=== PATIENT | female | born 1980 | race Caucasian/White ===

== ENCOUNTER 2020-10-06 08:11 | Emergency (ER) | payer MEDICAID ==
--- OUTSIDE RECORDS SUMMARY | 2020-10-06 08:14 | EXTERNAL MEDICAL SUMMARY RPT | Continuity of Care Document ---
:1980 Demographics Phone Unavailable Preferred Language Serbian Marital Status Unknown Taoism Affiliation Unknown Race Unknown Ethnic Group Unknown Author Organization [place] Address [address] [phone] Phone Care Team Providers Name Role Phone Justina Smith Unavailable Unavailable Procedures date description facility [id number] [facility] Vital Signs date measurement value source 20201004 BP_diastolic 77 mm[Hg] 20201004 BP_systolic 144 mm[Hg] 20201004 heart_rate 83 /min 20201004 respiration_rate 16 /min 20201004 temperature_metric 36.33 C 20201004 temperature_standard 97.4 F 20201004 weight_metric 99.79 kg 20201004 weight_standard 220 lb Social History date description facility [id number]
--- OUTSIDE RECORDS SUMMARY | 2020-10-06 08:18 | EXTERNAL MEDICAL SUMMARY RPT | Continuity of Care Document ---
:1980 Demographics Phone Unavailable Preferred Language Albanian Marital Status Unknown Christianity Affiliation Unknown Race Unknown Ethnic Group Unknown Author Organization [place] Address [address] [phone] Phone Care Team Providers Name Role Phone Shan Unavailable Unavailable Procedures date description facility [id number] [facility] Vital Signs date measurement value source 20201004 BP_diastolic 77 mm[Hg] 20201004 BP_systolic 144 mm[Hg] 20201004 heart_rate 83 /min 20201004 respiration_rate 16 /min 20201004 temperature_metric 36.33 C 20201004 temperature_standard 97.4 F 20201004 weight_metric 99.79 kg 20201004 weight_standard 220 lb Social History date description facility [id number]
--- NOTE | 2020-10-06 08:30 | ED Physician Documentation ---
PD HPI ABD PAIN - Stated complaint Stated Complaint: RT FLANK PX - History obtained from History obtained from: Patient - History of Present Illness Timing - onset: How many days ago (3-4) Timing - duration: Days (3-4) Timing - details: Abrupt onset, Still present, Waxing and waning (but more consistent overnight and states "the worst pain I have had".) Quality: Sharp, Stabbing, Pain Location: RUQ Radiation: Lower back (on right side), Right flank Improved by: No: Eating, Laying still Worsened by: Moving, Palpation. No: Eating, Breathing Associated symptoms: Nausea. No: Fever, Vomiting, Diarrhea, Hematuria Similar symptoms before: Has not had sx before Recently seen: Emergency Dept (seen 2 days ago at [facility] and reports was Dx with musculoskeletal pain and Rx NSAIDs. Say no tests/imaging.) Review of Systems Constitutional: denies: Fever, Chills Nose: denies: Rhinorrhea / runny nose, Congestion Throat: denies: Sore throat Respiratory: denies: Cough GI: reports: Abdominal Pain (ruq area around to right flank and back, with some pain down back to the iliac crest area, just on right.), Nausea. denies: Vomiting, Diarrhea Skin: denies: Rash, Lesions Neurologic: denies: Focal weakness, Numbness PD PAST MEDICAL HISTORY - Past Medical History Cardiovascular: None GI: None REGULATORY SCIENTIST: None Derm: None - Present Medications Home Medications: Ambulatory Orders Medication Instructions Recorded Confirmed Acyclovir 800 mg PO QID #20 tablet 10/06/20 Gabapentin [Neurontin] 600 mg PO TID 10/06/20 10/06/20 HYDROcod/ACETAM 5/325 [[place]ar[place] 5/325] 1 ea PO Q6H PRN #15 tablet 10/06/20 Ketorolac Inj (30Mg) [Toradol Inj 30 mg IVP Q6H 10/06/20 10/06/20 (30Mg)] Nortriptyline HCl [Pamelor] 50 mg PO DAILY PM 10/06/20 10/06/20 Rizatriptan Benzoate [[employer]] 10 mg PO PRN PRN 10/06/20 10/06/20 dexAMETHasone [Decadron] 4 mg PO DAILY #5 tablet 10/06/20 methocarbamoL [Robaxin] 500 mg PO TID PRN #20 tablet 10/06/20 - Allergies Allergies/Adverse Reactions: Allergies Allergy/AdvReac Type Severity Reaction Status Date / Time Sulfa (Sulfonamide Allergy Rash Verified 10/06/20 08:30 Antibiotics) PD ED PE NORMAL - Vitals Vital signs reviewed: Yes - General General: Alert and oriented X 3, Well developed/nourished, Other (appears in pain) - HEENT HEENT: Pharynx benign - Neck Neck: Supple, no meningeal sign, No adenopathy - Cardiac Cardiac: RRR (mild tachycardia), No murmur - Respiratory Respiratory: Clear bilaterally - Abdomen Abdomen: Normal bowel sounds, Soft, Non distended, No organomegaly, Other (tender RUQ with local guarding. ALso right CVA tender. No noted rash nor sores. Some tender with softer soft tissue palpation. Not tender to light touch. There is tender of the lower costal margin as well. ) - Female Female : Deferred - Rectal Rectal: Deferred - Back Back: No spinal TTP, Other (tender right CVA area in particular. Some tender right lateral muscles down back to the iliac crest area. ) - Derm Derm: Normal color, Warm and dry, No rash - Extremities Extremities: No edema, No calf tenderness / cord - Neuro Neuro: Alert and oriented X 3, No motor deficit, Normal speech Results - Vitals Vitals: Vital Signs - 24 hr 10/06/20 10/06/20 10/06/20 08:27 08:49 10:36 Temperature 36.2 C L 36.8 C Heart Rate 103 H 91 79 Respiratory 20 20 16 Rate Blood Pressure 133/93 H 123/91 H 122/80 O2 Saturation 97 93 97 10/06/20 12:10 Temperature 36.6 C Heart Rate 80 Respiratory 16 Rate Blood Pressure 128/90 H O2 Saturation 98 Oxygen O2 Source Room air - Labs Labs: Laboratory Tests 10/06/20 10/06/20 10/06/20 09:00 09:00 10:34 WBC 7.3 RBC 4.44 Hgb 13.4 Hct 41.0 MCV 92.3 MCH 30.2 MCHC 32.7 RDW 12.6 Plt Count 365 MPV 8.5 Neut # (Auto) 5.0 Lymph # (Auto) 1.6 [place] # (Auto) 0.5 Eos # (Auto) 0.1 Baso # (Auto) 0.0 Absolute Nucleated RBC 0.00 Nucleated RBC % 0.0 Sodium 139 Potassium 4.3 Chloride 109 Carbon Dioxide 21 Anion Gap 9.0 BUN 11 Creatinine 0.6 Estimated GFR (MDRD) 111 Glucose 113 H Calcium 9.7 Total Bilirubin 0.4 AST 18 ALT 16 Alkaline Phosphatase 45 Total Protein 7.7 Albumin 4.1 Globulin 3.6 Albumin/Globulin Ratio 1.1 Lipase 34 Urine Color YELLOW Urine Clarity CLEAR Urine pH 5.5 Ur Specific [place] 1.015 Urine Protein NEGATIVE Urine Glucose (UA) NEGATIVE Urine Ketones NEGATIVE Urine Occult Blood NEGATIVE Urine Nitrite NEGATIVE Urine Bilirubin NEGATIVE Urine Urobilinogen 0.2 (NORMAL) Ur Leukocyte Esterase TRACE H Urine RBC 0-5 Urine WBC 0-3 Ur Squamous Epith Cells MANY Squamous H Urine Bacteria Many H Ur Microscopic Review INDICATED Urine Culture Comments NOT INDICATED - Rads (name of study) abd pelvic CT Radiology: Prelim report reviewed (normal GB, kidneys without hydronephrosis. No stones. normal appendix. remote hyst. No acute cause for pain.), See rad report PD MEDICAL DECISION MAKING - ED course Complexity details: considered differential (unclear cause. Given the pain right flank to RUQ (also some right lower lumbar area, but not the main pain) without other obvious cause, and tender to palpation all of it, I would consider shingles pre/without rash, or musculoskeletal.), d/w patient Departure - Departure Disposition: 01 Home, Self Care Clinical Impression: Right upper quadrant abdominal pain Condition: Stable Record reviewed to determine appropriate education?: Yes Instructions: ED Abdominal Pain Unkn Cause Follow-Up: Justina Smith MD [Primary Care Provider] - Prescriptions: Acyclovir 800 mg PO QID #20 tablet dexAMETHasone [Decadron] 4 mg PO DAILY #5 tablet HYDROcod/ACETAM 5/325 [[place]arvon 5/325] 1 ea PO Q6H PRN #15 tablet PRN Reason: Pain methocarbamoL [Robaxin] 500 mg PO TID PRN #20 tablet PRN Reason: Spasms Comments: Your CT scan and blood tests do not give an obvious answer. No signs of gallbladder problems, kidney stones, other organ problem. Considerations would be musculoskeletal pain. I would also consider, given the distribution and intensity of the pain, the possibility of shingles without rash. We can treat this with anti-inflammatories and add in pain medicine and muscle relaxant. I would consider adding an antiviral medicine for possibility of shingles as well. Follow-up with your primary care if not improved well over the next few days and return if other symptoms. Discharge Date/Time: 10/06/20 12:10
[2020-10-06] MEDS ORDERED: KETOROLAC 15 MG/ML VIAL IVP STA (08:50)
[2020-10-06] MEDS ORDERED: SODIUM CHLORIDE 0.9% 1,000 ML IV STA (08:50)
[2020-10-06] MEDS ORDERED: MORPHINE 10 MG/ML VIAL IVP STA (08:50)
[2020-10-06] MEDS ORDERED: ONDANSETRON 4 MG/2 ML VIAL IVP STA (08:50)
[2020-10-06 09:13] LABS: BASOPHILS % (AUTO) 0.5 %; EOSINOPHILS # (AUTO) 0.1 10^3/uL (0.0-0.7); EOSINOPHILS % (AUTO) 1.6 %; HGB - HEMOGLOBIN 13.4 g/dL (12.0-16.0); LYMPHOCYTES # (AUTO) 1.6 10^3/uL (1.5-3.5); LYMPHOCYTES % (AUTO) 22.2 %; MEAN CORPUSCULAR HEMOGLOBIN 30.2 pg (27.0-31.0); MEAN CORPUSCULAR HGB CONC 32.7 g/dL (32.0-36.0); MEAN CORPUSCULAR VOLUME 92.3 fL (81.0-99.0); MEAN PLATELET VOLUME 8.5 fL (7.9-10.8); MONOCYTES # (AUTO) 0.5 10^3/uL (0.0-1.0); MONOCYTES % (AUTO) 6.6 %; NEUTROPHILS % (AUTO) 68.8 %; PLT - PLATELET COUNT 365 10^3/uL (130-450); RED BLOOD COUNT 4.44 10^6/uL (4.20-5.40); RED CELL DISTRIBUTION WIDTH 12.6 % (12.0-15.0); WHITE BLOOD COUNT 7.3 x10^3/uL (4.8-10.8)
[2020-10-06 09:27] LABS: ALBUMIN 4.1 g/dL (3.2-5.5); ALBUMIN/GLOBULIN RATIO 1.1 (1.0-2.2); BILIRUBIN,TOTAL 0.4 mg/dL (0.2-1.0); CALCIUM 9.7 mg/dL (8.5-10.3); CREATININE 0.6 mg/dL (0.4-1.0); POTASSIUM 4.3 mmol/L (3.5-5.0); TOTAL PROTEIN 7.7 g/dL (6.7-8.2)
[2020-10-06] MEDS ORDERED: IOPAMIDOL-300 100 ML VIAL ONE (09:56)
--- NOTE | 2020-10-06 10:31 | CT Report ---
PROCEDURE: Abdomen/Pelvis W INDICATIONS: Abdominal pain, acute, right abd/flank CONTRAST: IV CONTRAST: Isovue 300 ml: 100 PO CONTRAST: *NO PO CONTRAST TECHNIQUE: After the administration of intravenous contrast, 5 mm thick sections acquired from the diaphragms to the symphysis. 5 mm thick coronal and sagittal reformats were acquired. For radiation dose reducti on, the following was used: automated exposure control, adjustment of mA and/or kV according to aubree ent size. COMPARISON: None. FINDINGS: Image quality: Excellent. ABDOMEN: Lung bases: Lung bases are clear. Heart size is normal. Solid organs: Liver and spleen are normal in size and enhancement. Gallbladder is unremarkable. Bi liary system is non dilated. Pancreas enhances normally. No adrenal nodules. Kidneys demonstrate n ormal size and enhancement, without hydronephrosis. Peritoneum and bowel: Bowel loops demonstrate normal wall thickness and caliber. No free fluid or a ir. Normal appendix. Mild sigmoid diverticulosis without evidence of diverticulitis. Nodes and vessels: No retroperitoneal or mesenteric adenopathy by size criteria. Aorta and inferior vena cava are normal in size. Miscellaneous: No ventral hernias. PELVIS: Genitourinary: Bladder wall thickness is normal. Miscellaneous: No inguinal hernias or adenopathy. Uterus is surgically absent. Bones: No suspicious bony lesions. No vertebral body compression fractures. IMPRESSION: 1. Normal appendix. 2. Remote hysterectomy. 3. No evidence of acute abdominal process. 4. Mild sigmoid diverticulosis. Reviewed by: Chon Rodriguez MD on 10/06/2020 10:30 AM PDT Approved by: Chon Rodriguez MD on 10/06/2020 10:30 AM PDT Station ID: [id number]
[2020-10-06 10:43] LABS: BILIRUBIN,URINE NEGATIVE (NEGATIVE); GLUCOSE, URINE (UA) NEGATIVE (NEGATIVE); KETONES,URINE (UA) NEGATIVE (NEGATIVE); LEUKOCYTE ESTERASE, URINE TRACE (NEGATIVE); NITRITE,URINE NEGATIVE (NEGATIVE); OCCULT BLOOD,URINE NEGATIVE (NEGATIVE); PH,URINE 5.5 PH (5.0-7.5); PROTEIN,URINE NEGATIVE (NEGATIVE); UROBILINOGEN,URINE 0.2 (NORMAL) E.U./dL (NORMAL)
[2020-10-06 10:44] LABS: CLARITY,URINE CLEAR (CLEAR)
[2020-10-06 10:55] LABS: BACTERIA,URINE Many /HPF (None Seen); RBC,URINE 0-5 /HPF (0-5); SQUAMOUS EPITHELIAL CELL,UR MANY Squamous (<= Few); WBC,URINE 0-3 /HPF (0-5)
[2020-10-06] MEDS ORDERED: MORPHINE 2 MG/ML CARPUJECT IVP STA (11:05)
[2020-10-06] MEDS ORDERED: DROPERIDOL 5 MG/2 ML VIAL IVP STA (11:06)
[2020-10-06] MEDS ORDERED: ACYCLOVIR 200 MG CAPSULE PO STA (11:06)
[2020-10-06] MEDS ORDERED: DEXAMETHASONE 10 MG/ML VIAL IVP STA (11:06)
[2020-10-06 12:11] VITALS: BP 128/90
[2020-10-06] MEDS ORDERED: IOPAMIDOL-300 100 ML VIAL IVP ONE (14:10)
== END 2020-10-06 12:10 | disposition home or self-care (01) ==
LOC: ED 08:11
DX: R10.11 Right upper quadrant pain (principal)
CPT/HCPCS: 36415; 74177; 80053; 81001; 83690; 85025; 96374; 96375; 96376; 99284; 99285; A9270; Q9967; 81003; 87086